=== PATIENT | female | born 1980 | race Caucasian/White ===

== ENCOUNTER 2021-07-29 16:21 | Emergency (ER) | payer OTHER ==
[2021-07-29 17:04] VITALS: BP 122/71; PULSE 77; TEMP 98; BMI 16.4
== END 2021-07-29 17:17 | disposition home or self-care (01) ==
LOC: FER 16:21
PROC: 0HQFXZZ Repair Right Hand Skin, External Approach (ICD-10-PCS; principal; 2021-07-29)
DX: S61.011A Laceration without foreign body of right thumb without damage to nail, initial encounter (principal); W26.8XXA Contact with other sharp object(s), not elsewhere classified, initial encounter
CPT/HCPCS: 99282-25

== ENCOUNTER 2021-08-05 14:29 | Emergency (ER) | payer OTHER ==
[2021-08-05 14:42] VITALS: BP 110/76; PULSE 67; TEMP 98.4; BMI 17.2
== END 2021-08-05 15:59 | disposition home or self-care (01) ==
LOC: FER 14:29
DX: Z48.02 Encounter for removal of sutures (principal)
CPT/HCPCS: 99281-25